=== PATIENT | male | born 1985 | race Caucasian/White ===

== ENCOUNTER 2020-08-04 14:04 | Emergency (ER) | payer OTHER ==
[2020-08-04] MEDS ORDERED: DIPH/PERTUSS(ACELL)/TETANUS VAC/PF 0.5 ML SYR (>=10YO) IM ONE (14:30)
[2020-08-04] MEDS ORDERED: LIDOCAINE 1%/EPINEPHRINE INJ 20 ML VIAL INJ ONE (14:35)
--- NOTE | 2020-08-04 14:36 | ER Document Report ---
ED Wound - General Chief Complaint: Laceration Stated Complaint: LACERATION ON FOOT Time Seen by Provider: 08/04/20 14:27 Primary Care Provider: [facility] [Provider Group] - Follow up as needed - HPI Notes: Patient is a 35-year-old male who presents with a laceration to his left foot that occurred 2 hours ago. Patient states he was surfing earlier today when he cut his foot on his surfboard fin. He is unsure when his last tetanus shot was. He denies any other injury. - Related Data Allergies/Adverse Reactions: No Known Allergies Allergy (Unverified 08/04/20 14:24) Past Medical History - General Information source: Patient - Social History Smoking Status: Never Smoker Chew tobacco use (# tins/day): No Frequency of alcohol use: None Drug Abuse: None Family History: Reviewed & Not Pertinent Review of Systems - Review of Systems Constitutional: No symptoms reported EENT: No symptoms reported Cardiovascular: No symptoms reported Respiratory: No symptoms reported Gastrointestinal: No symptoms reported Genitourinary: No symptoms reported Male Genitourinary: No symptoms reported Musculoskeletal: See HPI Skin: No symptoms reported Hematologic/Lymphatic: No symptoms reported Neurological/Psychological: No symptoms reported Physical Exam - Vital signs Vitals: Temp Pulse Resp BP Pulse Ox 98.3 F 102 H 20 127/80 H 99 08/04/20 14:10 08/04/20 14:10 08/04/20 14:10 08/04/20 14:10 08/04/20 14:10 - Notes Notes: PHYSICAL EXAMINATION: GENERAL: Well-appearing, well-nourished and in no acute distress. HEAD: Atraumatic, normocephalic. EYES: sclera anicteric, conjunctiva are normal. ENT: Moist mucous membranes. NECK: Normal range of motion LUNGS: Normal work of breathing HEART: 2+ radial pulses bilaterally EXTREMITIES: Laceration to the left medial midfoot on the plantar surface. No active bleeding. No pitting or edema. No cyanosis. NEUROLOGICAL: No focal neurological deficits. Moves all extremities spontaneously and on command. PSYCH: Normal mood, normal affect. SKIN: Warm, Dry, normal turgor, no rashes or lesions noted. Course - Re-evaluation Re-evalutation: Patient is a 35-year-old male who presents with a laceration to his left foot. Vital signs are normal and stable. On exam, laceration to his left medial foot on the plantar aspect. Laceration repair performed without complications and patient tolerated well. Tetanus shot given here in the ED today. Patient will be discharged home with prescription for Augmentin as a prophylactic antibiotic. Patient is referred to follow-up with primary care or return to ED in 7 to 10 days for suture removal. Return precautions follow-up instructions given. Patient understands and is agreement with the plan. - Vital Signs Vital signs: Temp Pulse Resp BP Pulse Ox 98.1 F 91 16 115/75 98 08/04/20 16:44 08/04/20 16:44 08/04/20 16:44 08/04/20 16:44 08/04/20 16:44 Procedures - Laceration/Wound Repair Left Medial Foot Wound length (cm): 4.5 Wound's Depth, Shape: Superficial, Irregular Anesthetic type: 1% Lidocaine w/epi Wound explored: Clean, No foreign body removed Wound Repaired With: Sutures Suture Size/Type: 4:0, Ethilon Number of Sutures: 6 Post-procedure NV exam normal: Yes Complications: No Notes: The wound is T-shaped and a total of 4.5 cm in length. The wound was copiously irrigated with normal saline and surgical cleanser. The wound was explored for foreign bodies and none were found. The wound was prepped and draped in the normal sterile fashion. The wound was anesthetized using 1% lidocaine with epi. The edges were reapproximated using 4-0 Ethilon. Bleeding was well controlled and the patient tolerated the procedure well. Discharge - Discharge Clinical Impression: Foot laceration Qualifiers: Encounter type: initial encounter Laterality: left Qualified Code(s): S91.312A - Laceration without foreign body, left foot, initial encounter Condition: Stable Disposition: HOME, SELF-CARE Instructions: Laceration Care ([facility]), Prophylactic Antibiotic ([facility]) Additional Instructions: Follow-up with your primary care or return to the ED in 7 to 10 days for suture removal. Prescriptions: Amoxicillin/Potassium Clav [Augmentin 875-125 Tablet] 1 tab PO BID 10 Days #20 tab Forms: Return to Work Referrals: [facility] [Provider Group] - Follow up as needed
[2020-08-04 16:52] VITALS: BP 115/75
== END 2020-08-04 16:50 | disposition home or self-care (01) ==
LOC: ER 14:04
DX: S91.312A Laceration without foreign body, left foot, initial encounter (principal); W45.8XXA Other foreign body or object entering through skin, initial encounter; Y93.18 Activity, surfing, windsurfing and boogie boarding; Y92.832 Beach as the place of occurrence of the external cause; Z23 Encounter for immunization
CPT/HCPCS: 99283; 90471; 90715; 12002; J3490